=== PATIENT | female | born 1955 | race African-American/Black ===

== ENCOUNTER 2020-12-25 11:51 | Emergency (ER) | payer BC ==
[~2020-12-25] VITALS: Ht 172.7 cm; Wt 91.0 kg
[2020-12-25 11:57] VITALS: BP 151/87
[2020-12-25] MEDS ORDERED: ONDANSETRON 4MG ODT PO ONE (12:15)
[2020-12-25 13:33] LABS: HEMATOCRIT. 48.7 % (36.0-48.0); HEMOGLOBIN. 15.5 g/dL (12.0-16.0); MEAN CORPUSCULAR HEMOGLOBIN 25.9 pg (28.0-32.0); MEAN CORPUSCULAR VOLUME 81.3 fL (81.0-99.0); MEAN PLATELET VOLUME 8.7 fl (7.4-10.4); PLATELET 287 x1000/uL (130-400); RED BLOOD CELL COUNT 5.98 mill/uL (4.2-5.4); RED CELL DISTRIBUTION WIDTH 15.3 % (11.6-14.6)
[2020-12-25 13:40] LABS: CHLORIDE 103 mEq/L (98-107)
[2020-12-25 14:42] LABS: PLATELET ESTIMATE NORMAL
[2020-12-25] MEDS ORDERED: IOHEXOL-350 100 ML BOTTLE ONE (17:12)
[2020-12-25] MEDS ORDERED: IOHEXOL-300 100 ML BOTTLE ONE (17:12)
[2020-12-25] MEDS ORDERED: ONDA4TAB5 MT (17:29)
== END 2020-12-25 17:58 | disposition home or self-care (01) ==
LOC: ER 11:51
DX: R10.0 Acute abdomen (principal); R11.2 Nausea with vomiting, unspecified; T50.B95A Adverse effect of other viral vaccines, initial encounter; Y92.89 Other specified places as the place of occurrence of the external cause; R74.01 Elevation of levels of liver transaminase levels; D72.829 Elevated white blood cell count, unspecified; E11.9 Type 2 diabetes mellitus without complications; I11.0 Hypertensive heart disease with heart failure
CPT/HCPCS: 36415; 74177; 80053; 83690; 85025; 99285; Q0162; Q9967

== ENCOUNTER 2021-03-27 10:48 | Emergency (ER) | payer BC ==
[~2021-03-27] VITALS: Ht 172.7 cm; Wt 86.0 kg
[~2021-03-27 10:48] MED LIST: ONDA4TAB5 MT
[2021-03-27] MEDS ORDERED: ONDANSETRON HCL 4MG/2ML INJ IV STA (11:35)
[2021-03-27] MEDS ORDERED: SODIUM CHLORIDE 0.9% 1,000 ML IV ONE (11:45)
[2021-03-27 13:04] LABS: HEMATOCRIT. 43.5 % (36.0-48.0); HEMOGLOBIN. 14.3 g/dL (12.0-16.0); MEAN CORPUSCULAR VOLUME 79.1 fL (81.0-99.0); MEAN PLATELET VOLUME 8.5 fl (7.4-10.4); PLATELET 221 x1000/uL (130-400); RED CELL DISTRIBUTION WIDTH 14.5 % (11.6-14.6)
[2021-03-27 13:06] LABS: CHLORIDE 109 mEq/L (98-107)
[2021-03-27] MEDS: ONDANSETRON 4MG ODT PO ONE (13:35)
[2021-03-27 13:37] LABS: PLATELET ESTIMATE NORMAL
[2021-03-27 13:53] LABS: CLARITY URINE CLEAR (CLEAR); COLOR URINE YELLOW (YELLOW); KETONES URINE NEGATIVE (NEGATIVE); LEUKOCYTE ESTERASE URINE NEGATIVE (NEGATIVE); NITRITE URINE NEGATIVE (NEGATIVE); OCCULT BLOOD URINE NEGATIVE (NEGATIVE); PH URINE 5.5 (4.5-8.0); PROTEIN URINE NEGATIVE (NEGATIVE); SPECIFIC GRAVITY URINE 1.016 (1.005-1.030); UROBILINOGEN URINE 0.2 E.U./dL (0.2-1.0)
[2021-03-27] MEDS ORDERED: ONDA4TAB5 MT (14:18)
[2021-03-27 14:54] VITALS: BP 134/73
== END 2021-03-27 15:39 | disposition home or self-care (01) ==
LOC: ER 10:48
DX: R11.2 Nausea with vomiting, unspecified (principal); I10 Essential (primary) hypertension; E11.9 Type 2 diabetes mellitus without complications; Z98.890 Other specified postprocedural states; Z90.49 Acquired absence of other specified parts of digestive tract
CPT/HCPCS: 36415; 74176; 80053; 81003; 83690; 85025; 99284; J7030; Q0162